=== PATIENT | female | born 1970 | race Caucasian/White ===

== ENCOUNTER → 2020-01-21 | Outpatient (CLI) | payer OTHER ==
[~2020-01-21] MED LIST: ASCO100T4 PO; CHOL400T36 PO; ESTR1TAB15 PO; GLUC-11 PO; LACT1CAP29 PO; MULT-245 PO; THYR120T PO; THYR30TA PO; VITA1TAB19 PO
== END ==
LOC: LAB 10:10
PROVIDERS: ATTEND Nurse Anesthetist, Certified Registered
DX: Z01.818 Encounter for other preprocedural examination (principal); K90.0 Celiac disease; Z20.828 Contact with and (suspected) exposure to other viral communicable diseases
CPT/HCPCS: U0003

== ENCOUNTER → 2020-01-25 | Day surgery (SDC) | payer OTHER ==
[~2020-01-25] MED LIST changes: +IPRATRPIUM/ALBUTEROL 0.5/2.5MG 3 ML NEBU. NEB PRN; +IV RINGERS SOLUTION,LACTATED 1,000 ML IV SCH; +LIDOCAINE 2% PF 5 ML VIAL. ONE; +MIDAZOLAM HCL PF 2 MG/2 ML VIAL. IV ONE; +ONDANSETRON PF 4 MG/2 ML VIAL. IV PRN; +PROPOFOL 10,000 MCG/ML (20ML) VIAL IV ONE
[2020-01-25 12:38] VITALS: BP 119/78
--- NOTE | 2020-01-28 14:11 | PATHOLOGY ---
[facility] Accession Number: [id number] . 01 Material submitted: . PART A: small bowel - SMALL BOWEL HX OF CELIAC PART B: stomach - GASTRIC BIOPSY . 01 Clinical history: . . . 02 Diagnosis: A. Small bowel biopsies: - No significant pathologic abnormalities. . B. Gastric biopsies: - Chronic gastritis, mild. (JPM:[facility] 01/28/2020) QTP 01/28/2020 1219 Local . 02 Comment: Sections of the small bowel biopsy reveal several segments of small intestine mucosa. Where best oriented, the mucosal villi appear normal and show no significant increase of intraepithelial lymphocytes. There are no sprue-like changes or significant inflammatory changes. . Sections of the gastric biopsy reveal segments of gastric antral and gastric antral/body transition mucosa showing congestion and mild chronic inflammation. A properly controlled immunoperoxidase stain for Helicobacter pylori is negative for Helicobacter organisms. (JPM:[facility] 01/28/2020) . Special stain performed: Immunoperoxidase stain for Helicobacter on B1. . 02 Electronically signed: . Fercho May MD, Pathologist NPI- [id number] . 01 Gross description: . A. The specimen is received in formalin, labeled "Rochelle Leija, small bowel, history of celiac". Received are two segments of pale joel soft tissue ranging in size from 0.3 to 0.4 cm in maximum dimensions. The specimen is submitted entirely in cassette A1. . B. The specimen is received in formalin, labeled "Rochelle Leija, gastric biopsy". Received are two segments of pale joel soft tissue ranging in size from 0.4 to 0.5 cm in maximum dimensions. The specimen is submitted entirely in cassette B1. ([facility]; 01/27/2020) QAC/QAC 01/27/2020 1941 Local . 02 Pathologist provided ICD-10: K29.50 . 02 CPT . 396569, [id number], [id number] Specimen Comment: A courtesy copy of this report has been sent to [phone], [phone] Specimen Comment: [id number] Specimen Comment: Report sent to / DR RABAGO Performed at: 01 [facility] [address] [place] [address] [address], [place] [id number] MD Jatinder López MD Phone: [phone] Performed at: 02 [facility] [address] [place], [place] [id number] MD Fercho May MD Phone: [phone]
== END | disposition home or self-care (01) ==
LOC: SURG 10:02
PROVIDERS: ATTEND Emergency Medicine
DX: R10.31 Right lower quadrant pain (principal); K90.0 Celiac disease; K29.50 Unspecified chronic gastritis without bleeding; Z88.0 Allergy status to penicillin; Z79.899 Other long term (current) drug therapy; Z88.5 Allergy status to narcotic agent; Z88.8 Allergy status to other drugs, medicaments and biological substances; Z72.89 Other problems related to lifestyle
CPT/HCPCS: 43239; 45378; 88305; 88342; J2001; J2704; J7120